=== PATIENT | female | born 1970 | race Caucasian/White ===

== ENCOUNTER → 2021-03-06 | Outpatient (CLI) | payer OTHER | LOC: KOH-I 13:44 | DX: M79.672 Pain in left foot (principal) | CPT/HCPCS: 73630 ==

== ENCOUNTER → 2021-03-28 | Outpatient (CLI) | payer OTHER | LOC: KOH-I 10:56 | DX: M77.42 Metatarsalgia, left foot (principal) | CPT/HCPCS: 73718 ==